=== PATIENT | male | born 1945 | race Caucasian/White ===

== ENCOUNTER 2016-05-20 11:01 | Emergency (ER) | payer MEDICARE, OTHER ==
--- NOTE | ~2016-05-20 | ER ---
PATIENT'S NAME: CHRISTOPHER HANKINS [facility] AGE: 70 Y [address] ROOM: [place] [address] LOCATION: [facility] ADMIT DATE: 05/20/2016 ER/Outpatient Report DISCHARGE DATE: 05/20/2016 FAMILY PHYSICIAN: PHYSICIAN, NO ATTENDING PHYSICIAN: Kedar Rojas CHIEF COMPLAINT: Left middle finger laceration. HISTORY OF PRESENT ILLNESS: Just before arrival, the patient was using an oscillating cutting tool with some wood when it slipped and hit his left finger. He is right-hand dominant. He states that he is up-to-date on his tetanus. Bleeding was easily controlled. He has no other concerns at this time. He really does not want sutures or local anesthesia. PAST MEDICAL HISTORY: He has a history of leukemia, in remission. PAST SURGICAL HISTORY: He has a surgical history of tonsillectomy and appendectomy. MEDICATIONS: 1. Gleevec. 2. Gabapentin. 3. Xarelto. 4. Bactrim. 5. Valtrex. 6. Fexofenadine. 7. Crestor. 8. Singulair. 9. Ramipril. 10. Omeprazole. 11. Lasix. 12. Prednisone. 13. Xyzal. 14. Finasteride. 15. Acetaminophen. 16. Oxycodone. ALLERGIES: TO REGLAN, LEVAQUIN, ERYTHROMYCIN, SIROLIMUS, AND FLUDARABINE. REVIEW OF SYSTEMS: All systems were reviewed and negative except as noted in the HPI as pertinent PATIENT'S NAME: CHRISTOPHER HANKINS [facility] AGE: 70 Y [address] ROOM: [place] [address] LOCATION: [facility] ADMIT DATE: 05/20/2016 ER/Outpatient Report DISCHARGE DATE: 05/20/2016 FAMILY PHYSICIAN: PHYSICIAN, NO ATTENDING PHYSICIAN: Kedar Rjoas to the patient's exam. PHYSICAL EXAMINATION: VITAL SIGNS: Blood pressure 140/78, pulse 91, respiratory rate is 16, temperature 97.3, SpO2 is 95% on room air. Pain 0/10. GENERAL: An age-appropriate male. No obvious pain or distress. HEENT: Normocephalic, atraumatic. Eyes are PERRL. The oropharynx is grossly normal. NECK: Supple. CHEST: Even and unlabored respirations. HEART: Regular rate and rhythm. ABDOMEN: Normal to inspection. EXTREMITIES: Grossly unremarkable other than the left index finger and left middle finger. There is a small superficial abrasion on the middle phalanx of the left index finger, not requiring intervention. The distal phalanx volar radial aspect has approximately a 9 mm full-thickness laceration with no visible tendon or bone or foreign material with minimal bleeding, that is clean. Otherwise unremarkable exam. NEUROLOGICAL: Intact. SKIN: Otherwise, normal to inspection grossly. LABORATORY DATA AND X-RAYS: None. IMPRESSION: Finger cut. EMERGENCY DEPARTMENT COURSE: The patient was seen and evaluated. The finger was irrigated copiously with normal saline. I was able to see the bottom of the wound. There was no foreign material, no tendon, no osseous involvement. At the patient's preference, he was given an exam without anesthesia. He was adamant to not receive sutures. I explained that on the hand at this location, glue would be more likely to fail. He states that he would try very hard to protect the area and keep it covered and reinforced the glue as needed to ensure that it did not deteriorate too soon. At that time, the area was cleaned. The glue was applied in a multilayer fashion allowing dry in between with good skin edge approximation. The patient will control the area well. The patient states he is up-to-date on his tetanus, and he is adamant about that. Recommend follow up with PCP as needed, return if any signs of infection. KEDAR ROJAS MD PATIENT'S NAME: CHRISTOPHER HANKINS [facility] AGE: 70 Y [address] ROOM: [place] [address] LOCATION: [facility] ADMIT DATE: 05/20/2016 ER/Outpatient Report DISCHARGE DATE: 05/20/2016 FAMILY PHYSICIAN: PHYSICIAN, NO ATTENDING PHYSICIAN: Kedar Rojas/alvin /[id number] d: 05/21/16 0006 t: 05/30/16 0638, OUTPATIENT REPORT
== END 2016-05-20 11:50 | disposition disaster alternative care site (69) ==
LOC: GACC 11:01
PROC: 0HQFXZZ Repair Right Hand Skin, External Approach (ICD-10-PCS; principal; 2016-05-20)
DX: S61.213A Laceration without foreign body of left middle finger without damage to nail, initial encounter (principal); S60.411A Abrasion of left index finger, initial encounter; Z90.49 Acquired absence of other specified parts of digestive tract; Z90.89 Acquired absence of other organs; Z79.899 Other long term (current) drug therapy; Z88.1 Allergy status to other antibiotic agents; Z88.8 Allergy status to other drugs, medicaments and biological substances; W31.89XA Contact with other specified machinery, initial encounter